=== PATIENT | female | born 1960 | race Caucasian/White ===

== ENCOUNTER 2017-03-26 21:47 | Inpatient (IN) | payer BC ==
[~2017-03-26] VITALS: Ht 157.5 cm; Wt 82.9 kg
[~2017-03-26 21:47] MED LIST: GABA-826 PO; OXYC-302 PO
[2017-03-26] MEDS ORDERED: DOCUSATE 100 MG CAPSULE PO PRN (23:00)
[2017-03-26] MEDS ORDERED: ACETAMINOPHEN 325 MG TABLET PO PRN (23:00)
[2017-03-26] MEDS ORDERED: TRAZODONE 50MG TABLET PO PRN (23:00)
[2017-03-26] MEDS ORDERED: hydrALAzine 20 MG/ML, 1ML IVPush PRN (23:00)
[2017-03-26] MEDS ORDERED: POLYETHYLENE GLYCOL 17 GM PACKET PO PRN (23:00)
[2017-03-26] MEDS ORDERED: BISACODYL 10 MG SUPP PR PRN (23:00)
[2017-03-26] MEDS: NS + 20MEQ KCL 1,000 ML IV SCH (23:55)
[2017-03-26] MEDS: METRONIDAZOLE PMX 500MG/100ML 100 ML IV SCH (23:56)
[2017-03-27] MEDS: HEPARIN 5,000 UNITS/ML, 1ML SQ SCH ×3 (00:07→22:31)
[2017-03-27 00:10] VITALS: BP 125/70
[2017-03-27 01:08] VITALS: BP 118/66
[2017-03-27] MEDS: CEFTRIAXONE 2 GM in SODIUM CHLORIDE 0.9% 50 ML IV SCH (01:55)
[2017-03-27] MEDS: morphine SULFATE 10 MG/ML, 1ML IVPush PRN ×2 (03:34→07:56)
[2017-03-27 04:39] LABS: BLOOD UREA NITROGEN 9 mg/dL (7-18)
[2017-03-27 04:51] LABS: ASPARTATE AMINO TRANSFERASE 635 U/L (15-37)
[2017-03-27] MEDS: NS + 20MEQ KCL 1,000 ML IV SCH ×3 (05:57→16:27)
[2017-03-27 07:06] VITALS: BP 124/70
[2017-03-27] MEDS: GABAPENTIN 100 MG CAPSULE PO SCH ×3 (07:39→22:31)
[2017-03-27] MEDS: METRONIDAZOLE PMX 500MG/100ML 100 ML IV SCH ×2 (07:49→15:44)
[2017-03-27] MEDS: PANTOPRAZOLE 40 MG IV IVPush SCH (07:49)
[2017-03-27] MEDS: ONDANSETRON 2MG/ML, 2ML IVPush PRN (09:31)
[2017-03-27] MEDS ORDERED: MIDAZOLAM 1 MG/ML, 5ML ONE (09:46)
[2017-03-27] MEDS ORDERED: FENTANYL PF 100 MCG/2ML ONE (09:46)
[2017-03-27] MEDS ORDERED: NALOXONE 1 MG/ML, 2ML ONE (09:46)
[2017-03-27] MEDS ORDERED: FLUMAZENIL 0.1 MG/1 ML, 5ML ONE (09:46)
[2017-03-27] MEDS ORDERED: LIDOCAINE 2%, 20ML ONE (09:47)
[2017-03-27 14:44] VITALS: BP 132/70
[2017-03-27 19:11] VITALS: BP 113/64
[2017-03-28] MEDS: METRONIDAZOLE PMX 500MG/100ML 100 ML IV SCH ×2 (00:09→07:55)
[2017-03-28] MEDS: CEFTRIAXONE 2 GM in SODIUM CHLORIDE 0.9% 50 ML IV SCH (02:26)
[2017-03-28] MEDS: NS + 20MEQ KCL 1,000 ML IV SCH (02:26)
[2017-03-28 02:29] VITALS: BP 110/68
[2017-03-28] MEDS: HEPARIN 5,000 UNITS/ML, 1ML SQ SCH (06:03)
[2017-03-28 06:22] LABS: ACETAMINOPHEN 3 mcg/mL (10-30); ASPARTATE AMINO TRANSFERASE 217 U/L (15-37); BLOOD UREA NITROGEN 6 mg/dL (7-18)
[2017-03-28 07:25] VITALS: BP 134/75
[2017-03-28] MEDS: PANTOPRAZOLE 40 MG IV IVPush SCH (07:30)
[2017-03-28] MEDS: ONDANSETRON 2MG/ML, 2ML IVPush PRN (08:01)
[2017-03-28] MEDS: GABAPENTIN 100 MG CAPSULE PO SCH (09:00)
[2017-03-28] MEDS ORDERED: ONDA4TAB10 PO (09:02)
[2017-03-28 10:00] VITALS: BP 132/70
[2017-03-28 10:57] LABS: HEPATITIS C VIRUS ANTIBODY Nonreactive (Nonreactive)
== END 2017-03-28 10:50 | disposition home or self-care (01) | DRG 393 ==
LOC: ED 22:25 → EDIP 22:35 → 4NOR 23:27 → DCLOUNGE 03-28 10:34
PROVIDERS: ADMIT Internal Medicine
PROC: 0W9G3ZX Drainage of Peritoneal Cavity, Percutaneous Approach, Diagnostic (ICD-10-PCS; principal; 2017-03-27)
DX: K91.89 Other postprocedural complications and disorders of digestive system (principal); K65.1 Peritoneal abscess; E87.2 Acidosis; R10.13 Epigastric pain; E66.9 Obesity, unspecified; E87.6 Hypokalemia; G43.909 Migraine, unspecified, not intractable, without status migrainosus; J32.9 Chronic sinusitis, unspecified; Z85.3 Personal history of malignant neoplasm of breast; Z90.13 Acquired absence of bilateral breasts and nipples; Z90.49 Acquired absence of other specified parts of digestive tract; Z88.0 Allergy status to penicillin; Z88.2 Allergy status to sulfonamides; Z91.048 Other nonmedicinal substance allergy status; Z68.34 Body mass index [BMI] 34.0-34.9, adult
CPT/HCPCS: 36415; 49405; 75989; 80053; 80074; 80307; 83605; 83735; 84439; 84443; 85025; 85610; 87070; 87075; 87205; 99156; 99157; C1894; J0696; J1644; J2250; J2405; J3010; J3480; J3490; C9113; J2270; J2310